=== PATIENT | female | born 1960 | race Caucasian/White ===

== ENCOUNTER → 2017-07-27 14:21 | Outpatient (CLI) | payer OTHER, SELFPAY ==
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
== END ==
DX: Z12.31 Encounter for screening mammogram for malignant neoplasm of breast (principal)
CPT/HCPCS: 77063; 77067

== ENCOUNTER → 2018-12-09 08:21 | Outpatient (CLI) | payer OTHER, SELFPAY ==
--- NOTE | 2018-12-09 08:26 | BI_ITS ---
MAMMOGRAPHY - BILATERAL SCREENING REASON FOR EXAM: Female, 58 years old. Routine annual screening examination. PERTINENT HISTORY: Sister with breast cancer. Remote stereotactic breast biopsy. TECHNIQUE: Digital bilateral breast evangelina (3D mammographic acquisition) in the CC and MLO projections. 2-D mediolateral oblique (MLO) and craniocaudad (CC) views of both breasts were obtained. CAD: Full Field Digital Mammography with Computer Added Detection was performed. COMPARISON: Comparison is made with prior examination dated July 27, 2017 and September 28, 2013. FINDINGS: Breast Composition: The breasts are heterogeneously dense, which may obscure small masses. There are no dominant masses or suspicious calcifications. No other significant abnormalities are identified. There has been no significant change since the prior study. BI/SCREEN MAMM (CAD) W/EVANGELINA BILAT IMPRESSION: Stable bilateral screening mammogram. Yearly follow-up mammogram recommended. (A) ASSESSMENT CATEGORY: BIRADS Category 1: Negative. A letter regarding these results will be sent to the patient by the facility within 30 days. Approximately 10% of breast cancers are not detected by mammography. A normal mammogram should not delay biopsy of a clinically suspicious abnormality. [id number] Electronically Signed: Jimbo Gracia, at 9:46 EDT , Service support ,
== END ==
PROVIDERS: Referring Provider Internal Medicine; Visit Provider Internal Medicine
DX: Z12.31 Encounter for screening mammogram for malignant neoplasm of breast (principal); Z80.3 Family history of malignant neoplasm of breast
CPT/HCPCS: 77063; 77067

== ENCOUNTER → 2022-03-11 | Outpatient (CLI) | payer BC, SELFPAY ==
--- NOTE | 2022-03-11 11:30 | BRBX_PTH ---
PATIENT: BULL MCNEILL LOC: [facility] U#:[id number] AGE/SX: 61/F ROOM: RE03/11/[address]: Dr. Kaylan Aguero MD : 1960 BED: DIS: 03/11/2022 SPEC #: [id number] RECD: 03/11/22 12:14 STATUS: MINNA REKavon #: [id number] CHANTELL: 03/11/22 11:[address]: Kaylan Aguero DEPT: SURGICAL PATHOLOGY RECD BY: Mona Baldwin ENTERED: 03/11/22 12:48 SP TYPE: BREAST BX OTHR DR: Dr. Katherine Mccann MD Tissues: Right breast, NOS Procedures: Surgery Specimen Level IV HEADER OPERATION: Right breast stereotactic biopsy PRE-OP DIAGNOSIS: Right breast calcifications TISSUE SUBMITTED: Right breast core tissue ISCHEMIC TIME: 1 minute FIXATION TIME: 8 hours MICROSCOPIC DIAGNOSIS Right breast, stereotactic core biopsy: Involutional change. Mild fibrocystic change. Focal presumed cyst rupture with associated reparative reactive change and associated clustered microcalcifications. No evidence of malignancy. AM:kobe 03/12/2022 MICROSCOPIC DESCRIPTION Slides are reviewed. GROSS DESCRIPTION Received is one container labeled with the patient's name and not further designated. The specimen consists of multiple irregular fragments of pink-yellow soft tissue that in aggregate measure 2 x 2 x 0.2 cm. The specimen is totally submitted in one cassette. / AM:kobe 03/11/2022 TC:3 CPT: 49005
--- NOTE | 2022-03-11 13:33 | OP.PCM_ITS ---
Report of Operation Date of Procedure: 03/11/22 Pre-Operative Diagnosis: abnormal calcifications on right breast mammograms Post-Operative Diagnosis: same Surgery/Procedure Performed:: right stereotactic breast biopsy Description of Surgical Findings:: abnormal calcifications on right breast mammograms Surgeon: Kaylan Aguero Type of Anesthesia: Local Specimen's removed: right breast tissue Estimated Blood Loss (mL): < 1 ml Description of Procedure: After informed consent was given, the patient was brought into the Breast Biopsy suite. Appropriate time out protocol was followed. The patient was placed in the prone position on the stereotactic biopsy table. The patient?s right breast was then placed in the opening at the head of the biopsy table. A caterpillar tractor operator compression mammogram was then obtained in the lateral view. The suspicious radiological lesion was thus identified. Stereo pictures of the lesion were then taken for XYZ coordinates. The Mammotome biopsy stylus was then positioned where it would be entering into the patient?s breast. The skin at this site was then cleansed with a surgical skin preparation. The skin and subcutaneous tissues at this site were then infiltrated with 1% xylocaine. A small skin incision was made with an 11 blade scalpel. The biopsy stylus was then positioned into the patient?s breast at the proper coordinates of depth. Using the Mammotome vacuum-assist device, several core samples of breast tissue were obtained. A specimen mammogram was the obtained. It revealed that the abnormal calcifications were within the specimen. I reviewed this personally and concluded that the tissue sampling was adequate. A hemostatic marker clip was then placed into the biopsy cavity and a caterpillar tractor operator film revealed that it was properly deployed. The patient was then placed in the supine position and pressure was applied to the breast until no active bleeding was noted. A nylon suture was placed to reapproximate the skin. A unilateral mammogram in the CC and MLO view were then taken which revealed that the marker clip was in the same area as the previous suspicious lesion. The patient tolerated the procedure well and was discharged from the Breast Biopsy suite in good condition. Complications none noted
== END | disposition home or self-care (01) ==
PROVIDERS: PCP Internal Medicine; Referring Provider Surgery; Visit Provider Surgery
DX: R92.8 Other abnormal and inconclusive findings on diagnostic imaging of breast (principal); N60.11 Diffuse cystic mastopathy of right breast
CPT/HCPCS: 19101; 19081; 88305; J7050

== ENCOUNTER → 2025-02-10 | Outpatient (CLI) | payer BC, SELFPAY ==
--- NOTE | 2025-02-10 15:25 | US_ITS ---
PROCEDURE: KIDNEY AND BLADDER 02/10/2025 REASON FOR EXAM: UTI'S TECHNIQUE: Procedure Code: USKI Modality: US Procedure: KIDNEY AND BLADDER FINDINGS: Right kidney measures 9.3 cm and left kidney measures 9.7 cm. Normal echotexture of bilateral kidneys. No hydronephrosis. No renal stones. Postvoid residual of 143 mL. US/Kidney and Bladder IMPRESSION: Urinary retention with postvoid residual of 143 mL. No hydronephrosis. Reading Location: [id number]
== END | disposition home or self-care (01) ==
LOC: US 15:25
PROVIDERS: PCP Internal Medicine; Referring Provider Urology; Visit Provider Urology
DX: N39.0 Urinary tract infection, site not specified (principal)
CPT/HCPCS: 76770